=== PATIENT | female | born 1955 | race Caucasian/White ===

== ENCOUNTER → 2016-08-15 | Outpatient (CLI) | payer MEDICARE, BC ==
--- NOTE | 2016-08-15 17:20 | MR ---
EXAMINATION TYPE: MR brain wo/w con DATE OF EXAM: 08/15/2016 4:36 PM COMPARISON: Previous study dated 11/29/2011. HISTORY: Unsteadiness on feet, confusion, prior meningioma surgery TECHNIQUE: Multiplanar, multiecho imaging of the brain was obtained with and without intravenous adm inistration of 13 mL intravenous MultiHance. FINDINGS: There has been a previous left frontal craniotomy. There is postsurgical change in the left frontal lobe, not significantly changed from previous. Midline structures are unremarkable. There is a normal craniocervical junction. Echoplanar diffusion imaging is normal. There are normal vascular flow voids. The orbits are unremarkable. There is no evidence of a CP angle mass lesion. There is both punctate and confluent periventricular white matter disease. This has progressed slight ly from the previous examination. There is mild dilatation of the ventricular system, unchanged from previous. There is no mass effect, midline shift or intracranial blood identified. Following the intravenous administration of gadolinium, there is meningeal enhancement on the left. T his has not changed from previous. IMPRESSION: 1. POSTSURGICAL CHANGE. 2. MILD VENTRICULAR DILATATION, UNCHANGED FROM PREVIOUS. 3. PUNCTATE AND CONFLUENT PERIVENTRICULAR WHITE MATTER DISEASE, SLIGHTLY WORSE THAN PREVIOUS EXAMINAT ION. THIS IS LIKELY DUE TO SMALL VESSEL DISEASE. 4. NO ACUTE INTRACRANIAL ABNORMALITY.
== END | disposition home or self-care (01) ==
LOC: RADMRIMAIN 15:43
PROVIDERS: ATTEND Psychiatry & Neurology Neurology
DX: R90.82 White matter disease, unspecified (principal); Z98.890 Other specified postprocedural states
CPT/HCPCS: 70553; A9577

== ENCOUNTER → 2017-05-10 | Outpatient (CLI) | payer MEDICARE, BC ==
--- NOTE | 2017-05-10 13:51 | MM ---
Reason for exam: additional evaluation requested from prior study. Last mammogram was performed 1 year ago. History: Patient is postmenopausal, has history of breast cancer at age 57, and has history of other cancer at age 54. Family history of breast cancer in mother at age 50. Implants in both breasts, 2012. Mastectomy of the left breast, 2012. Chemotherapy, 2012. Physical Findings: Nurse did not find any significant physical abnormalities on exam. MG 3D Diag Mammo Imp W/Cad RT CC and MLO view(s) were taken of the right breast. Prior study comparison: May 02, 2016, right breast MG 3d diag mammo imp w/cad RT. February 28, 2015, right breast MG diagnostic mammo RT w CAD. The breast tissue is heterogeneously dense. This may lower the sensitivity of mammography. Finding: There are typically benign calcifications in the right breast. No significant changes in finding since May 02, 2016 and February 28, 2015. These results were verbally communicated with the patient and result sheet given to the patient on 05/10/17. ASSESSMENT: Benign, BI-RAD 2 RECOMMENDATION: Follow-up diagnostic mammogram of the right breast in 1 year.
== END | disposition home or self-care (01) ==
LOC: RADMAMWWP 12:48
PROVIDERS: ATTEND Family Medicine
DX: R92.1 Mammographic calcification found on diagnostic imaging of breast (principal); Z85.3 Personal history of malignant neoplasm of breast
CPT/HCPCS: G0206; G0279

== ENCOUNTER → 2018-07-02 | Outpatient (CLI) | payer MEDICARE, BC ==
[2018-07-02 08:56] VITALS: BP 105/57; PULSE 70; TEMP 96.1; BMI 28.7
--- NOTE | 2018-07-02 09:58 | P.HPOB ---
History of Present Illness H&P Date: 07/02/18 Chief Complaint: The patient is here for her routine gynecologic exam and mammogram. This is a 63-year-old G2 PII with an LMP of approximately 2003. The patient is here to establish with this office. It has been a little more than a year since her last pelvic exam. She is without gynecologic complaints and denies any postmenopausal bleeding. Review of Systems The patient has gained 20 pounds over the last year. She denies respiratory, cardiac, or G.I. problems. Past Medical History Past Medical History: Cancer (Left breast cancer status post mastectomy and chemotherapy 2013.), Hypertension, Rheumatoid Arthritis (RA), Seizure Disorder Additional Past Medical History / Comment(s): cardiomiopathy. Frontal meningioma removed in 2009 with resulting seizure disorder. Possible sarcoidosis. Seasonal allergies. Osteoporosis with approximately 1 1/2 years use of a bisphosphonate(2018). History of Any Multi-Drug Resistant Organisms: VRE Past Surgical History: Breast Surgery (Left mastectomy followed by bilateral implants 2012.), Section (x2) Additional Past Surgical History / Comment(s): left side masectomy. Frontal meningioma removed 2009. Colonoscopy 2016(2nd). Past Psychological History: Anxiety, Depression Smoking Status: Former smoker (in high school.) Past Alcohol Use History: None Reported Past Drug Use History: None Reported Additional History: Previously worked as an occupational therapist. Now living with and caring for her parents. She is and is not seeing anybody at this time. - Past Family History Father Family Medical History: Cancer (Prostate cancer), CVA/TIA, Liver Disease, Renal Disease Mother Family Medical History: Cancer (Breast cancer) Additional Family Medical History / Comment(s): Blind, hard of hearing, peptic ulcer disease. Sister(s) Additional Family Medical History / Comment(s): Osteoporosis. Medications and Allergies Home Medications Medication Instructions Recorded Confirmed Type Alendronate Sodium [Fosamax] 70 mg PO WEEKLY 07/02/18 07/02/18 History Amitriptyline HCl [Elavil] 25 mg PO HS 07/02/18 07/02/18 History Aspirin [Children's Aspirin] 81 mg PO DAILY 07/02/18 07/02/18 History Calcium Carbonate [Calcium] 600 mg PO DAILY 07/02/18 07/02/18 History Cholecalciferol (Vitamin D3) 2,000 unit PO DAILY 07/02/18 07/02/18 History [Vitamin D3] Digoxin [Lanoxin] 125 mcg PO DAILY 07/02/18 07/02/18 History [place]-3 Fatty Acids/Fish Oil [Fish 1 each PO DAILY 07/02/18 07/02/18 History Oil 1,000 mg Softgel] Spironolactone [Aldactone] 12.5 mg PO DAILY 07/02/18 07/02/18 History Venlafaxine HCl [Effexor XR] 150 mg PO BID 07/02/18 07/02/18 History clonazePAM [KlonoPIN] 0.5 mg PO BID 07/02/18 07/02/18 History levETIRAcetam [Keppra] 500 mg PO BID 07/02/18 07/02/18 History Allergies Allergy/AdvReac Type Severity Reaction Status Date / Time No Known Allergies Allergy Unverified 07/02/18 08:56 Exam Vital Signs Temp Pulse BP 07/02/18 08:47 96.1 F L 70 105/57 Intake and Output 07/01/18 07/02/18 07/02/18 22:59 06:59 14:59 Other: Weight 66.678 kg Height 5'0", weight 147 pounds, BMI 28.7. This is a well-developed well-nourished white female who is alert and oriented times 3 in no acute distress. HEENT: Within normal limits. NECK: Supple without mass or thyromegaly. CHEST AND LUNGS: Clear to auscultation. HEART: Regular rate and rhythm. BREASTS: Are without mass or discharge. The left side is consistent with mastectomy and reconstruction with an implant. The right side is also consistent with an implant. AXILLARY EXAM: Negative for adenopathy. BACK: Negative for CVA tenderness. ABDOMEN: Soft, nontender, without palpable masses. PELVIC EXAM: Normal external genitalia with moderate atrophy. Cervix and vagina appear normal with moderate to severe atrophy. There is no unusual discharge. There is no evidence of prolapse. The uterus is midposition, nongravid size and nontender. There are no palpable adnexal masses or tenderness. RECTAL EXAM: rectal vaginal exam is negative for mass or tenderness and is negative for occult blood. EXTREMITIES: Nontender. IMPRESSION: 1. 63-year-old menopausal female with normal gynecologic exam. 2. Multiple medical problems. 3. History of left breast cancer status post mastectomy, chemotherapy and reconstruction with no evidence of recurrence. 4. History of osteoporosis treated and managed by her primary care physician. PLAN: 1. Pap smear was performed. 2. Self breast awareness was discussed with the patient. 3. Diagnostic right mammogram will be done today. 4. Osteoporosis prevention was discussed. I have stressed the importance of adequate calcium, vitamin D and regular exercise. Recommended amounts of calcium and vitamin D were also discussed. Treatment for osteoporosis and bone density testing will be done through her primary care physician as she has done in the past. 5. She will return in one year.
--- NOTE | 2018-07-02 11:59 | MM ---
Reason for exam: additional evaluation requested from prior study. Last mammogram was performed 1 year and 2 months ago. History: Patient is postmenopausal, has history of breast cancer at age 57, and has history of other cancer at age 54. Family history of breast cancer in mother at age 50. Implants in both breasts, 2012. Mastectomy of the left breast, 2012. Chemotherapy, 2012. Physical Findings: Dr. Dunn did breast exam. MG 3D Diag Mammo Imp W/Cad RT CC, MLO, and ID view(s) were taken of the right breast. Prior study comparison: May 10, 2017, right breast MG 3d diag mammo imp w/cad RT. May 02, 2016, right breast MG 3d diag mammo imp w/cad RT. The breast tissue is heterogeneously dense. This may lower the sensitivity of mammography. Right implant. These results were verbally communicated with the patient and result sheet given to the patient on 07/02/18. ASSESSMENT: Benign, BI-RAD 2 RECOMMENDATION: Follow-up diagnostic mammogram of the right breast in 1 year.
== END | disposition home or self-care (01) ==
LOC: WWCWWP 08:24
PROVIDERS: ATTEND Obstetrics & Gynecology
DX: Z08 Encounter for follow-up examination after completed treatment for malignant neoplasm (principal); Z85.3 Personal history of malignant neoplasm of breast
CPT/HCPCS: 77065; G0279; 77061

== ENCOUNTER → 2018-11-13 | Outpatient (CLI) | payer MEDICARE, BC ==
--- NOTE | 2018-11-13 19:11 | BD ---
EXAMINATION TYPE: Axial Bone Density DATE OF EXAM: 11/13/2018 COMPARISON: NONE CLINICAL HISTORY: 63 YR OLD FEMALE.... ICD-10 CODE: M81.0 KNOWN OSTEOPOROSIS Height: 60 Weight: 149 FRAX RISK QUESTIONS: History of Fracture in Adulthood: YES RISK FACTORS HISTORY OF: HX OF FRACTURED RIBS, OVER AGE 50 Postmenopausal woman: YES, AT ABOUT 49 YRS OLD MEDICATIONS: SEASONAL ALLERGIES AND SEASONAL INDUCED ASTHMA SINGULAIR Additional Medications: CALCIUM, VIT D, VIT C, JARON RED KRILL OIL, ASPIRIN, DIGITOXIN, KEPRA, STATIN , EFFEXOR, BP MEDS, AMATRIPTOLIN, HX OF CHEMO FOR BREAST CA Additional History: OSTEOARTHRITIS, BRAIN TUMOR THAT HAS BEEN REMOVED, SOME CONFUSION, CHOLESTEROL, L T BREAST CANCER WITH MASTECTOMY EXAM MEASUREMENTS: Bone mineral densitometry was performed using the [email or web address] System. Bone mineral density as measured about the Lumbar spine is: ----- L1-L4(G/cm2): 1.147 T Score Values are as follows: ----- L1: -1.7 ----- L2: -1.5 ----- L3: 0.4 ----- L4: 1.1 ----- L1-L4: -0.3 Bone mineral density FIRST DEXA SCAN.....BASELINE STUDY Bone mineral density about the R hip (g/cm2): 0.954 Bone mineral density about the L hip (g/cm2): 0.912 T Score values are as follows: -----R Neck: -1.6 -----L Neck: -1.8 -----R Total: -0.4 -----L Total: -0.8 Bone mineral density BASELINE STUDY FRAX%s; THERE IS A 15.6% CHANCE FOR A MAJOR OSTEOPOROTIC FX AND A 1.9% FOR HIP.....PROBABILITY OF F X IN 10 YRS TIME IMPRESSION: Osteopenia (T Score between -2.5 and -1). There is slightly increased risk of fracture and the patient may be considered for treatment. Re-Screen 2-5 years. NOTE: T-SCORE=SD OF THE YOUNG ADULT MEAN.
== END | disposition home or self-care (01) ==
LOC: RADBDWWP 08:47
PROVIDERS: ATTEND Family Medicine
DX: M85.88 Other specified disorders of bone density and structure, other site (principal)
CPT/HCPCS: 77080

== ENCOUNTER → 2020-05-17 | Outpatient (CLI) | payer MEDICARE, BC ==
[2020-05-17 13:28] LABS: Basophils % (A) 1 %; Eosinophils # (A) 0.1 k/uL (0-0.7); Eosinophils % (A) 3 %; HCT 42.6 % (34.0-46.0); HGB 13.6 gm/dL (11.4-16.0); Lymphocytes # (A) 0.5 k/uL (1.0-4.8); Lymphocytes % (A) 13 %; MCH 31.6 pg (25.0-35.0); MCHC 31.8 g/dL (31.0-37.0); MCV 99.5 fL (80.0-100.0); Mean Platelet Volume 8.1; Monocytes # (A) 0.2 k/uL (0-1.0); Monocytes % (A) 5 %; Neutrophils # (A) 2.9 k/uL (1.3-7.7); Neutrophils % (A) 77 %; Platelet Count 217 k/uL (150-450); RBC 4.29 m/uL (3.80-5.40); RDW 12.9 % (11.5-15.5); WBC 3.8 k/uL (3.8-10.6)
[2020-05-17 17:26] LABS: African American GFR (CKD) 77.8 (60.0-200.0); Albumin/Globulin Ratio 1.82 (1.60-3.17); Anion Gap 6.3 mmol/L (4.00-12.00); BUN/Creat Ratio 16.67 Ratio (12.00-20.00); Calcium 9.2 mg/dL (8.7-10.3); Carbon Dioxide 26.7 mmol/L (21.6-31.8); Chol/HDL Ratio 2.33; Globulin 2.2 g/dL (1.6-3.3); LDL Cholesterol,Calculated 69.2 mg/dL (0.0-131.0); Non-African American GFR(CKD) 67.1 (60.0-200.0); Potassium 4.9 mmol/L (3.5-5.5); Total Bilirubin 0.4 mg/dL (0.2-1.2); Total Protein 6.2 g/dL (6.2-8.2); VLDL Calculation 15.8 mg/dL (5.00-40.00)
[2020-05-17 21:37] LABS: Erythrocyte Sedimentation Rate 33 mm/Hr (0-30)
== END | disposition home or self-care (01) ==
LOC: LABWHC1 10:14
PROVIDERS: ATTEND Family Medicine
DX: Z00.00 Encounter for general adult medical examination without abnormal findings (principal)
CPT/HCPCS: 36415; 80053; 80061; 84443; 85025; 85652

== ENCOUNTER → 2020-09-22 | Outpatient (CLI) | payer MEDICARE, BC ==
--- NOTE | 2020-09-22 17:12 | MR ---
EXAMINATION TYPE: MR brain wo/w con DATE OF EXAM: 09/22/2020 COMPARISON: Prior brain MRI 08/15/2016 HISTORY: F/U to prior surgeries, coordination changes, behavior changes TECHNIQUE: Multiplanar, multisequence images of the brain and brainstem is performed without and with IV contras t, utilizing 5.5 mL intravenous Gadavist . FINDINGS: Diffusion weighted images demonstrate no evidence of a recent infarct or other diffusion ab normality. There is no extra-axial fluid collection or significant change in white matter signal abn ormality, postop changes in the left frontal lobe with encephalomalacia and gliotic signal changes ar e again noted, ex vacuo phenomenon is present at the frontal horn of the left lateral ventricle. The ventricular system and cisternal spaces are normal in size and appearance. The brain volume is age appropriate. Midline structures demonstrate normal morphology. The craniocervical junction appears within normal limits. Post contrast images demonstrate no abnormal enhancement within the brain, at the level of t he frontal calvarium there is enhancement noted similar to prior exam at the site of craniotomy. The dural venous sinuses appear patent. The visualized sinuses are clear and the globes are intact. IMPRESSION: Stable abnormal findings
== END ==
LOC: RADMRIMAIN 14:11
PROVIDERS: ATTEND Psychiatry & Neurology Neurology
DX: R93.0 Abnormal findings on diagnostic imaging of skull and head, not elsewhere classified (principal)
CPT/HCPCS: 70553; A9585